=== PATIENT | male | born 2000 | race Caucasian/White ===

== ENCOUNTER 2022-09-08 12:08 | Emergency (ER) | payer OTHER ==
--- NOTE | 2022-09-08 12:29 | ERPHSYRPT ---
- History of Present Illness Time Seen by Provider: 09/08/22 12:29 Source: patient, family Exam Limitations: no limitations Physician History: This is a 21-year-old white male has a history of recurrent strep pharyngitis who yesterday noticed some sore throat and associated fever. Patient's mother is a nurse and the patient received 3 tablets of ibuprofen at approximately 1030 this morning. He has a mild associated cough. 2 [id number] COVID test were performed and they were negative. Patients father has similar symptoms. Timing/Duration: yesterday, worse Cough Quality/Degree: mild Possible Cause: occasional episodes Modifying Factors: Improves With: coughing Associated Symptoms: fever, cough, headache, sore throat (Low-grade) Home Medications: Dextroamphetamine/Amphetamine [Adderall 5 mg Tablet] 20 mg PO BIDWMEALS 09/08/22 [History] Ibuprofen 400 mg PO Q6H PRN PRN 09/08/22 [History] Travel Risk - International Travel Have you traveled outside of the country in past 3 weeks: No - Coronavirus Screening Are you exhibiting any of the following symptoms?: Yes Symptoms: Fever, Cough: New Onset - Review of Systems Constitutional: Fever Eyes: No Symptoms Ears, Nose, & Throat: Throat Pain Respiratory: Cough Cardiac: Other (Tachycardia) Abdominal/Gastrointestinal: No Symptoms Genitourinary Symptoms: No Symptoms Musculoskeletal: No Symptoms Skin: No Symptoms Neurological: No Symptoms Psychological: No Symptoms Endocrine: No Symptoms Hematologic/Lymphatic: No Symptoms Immunological/Allergic: No Symptoms - Past Medical History Pertinent Past Medical History: Yes - Past Surgical History Past Surgical History: Yes - Nursing Vital Signs Nursing Vital Signs: Initial Vital Signs Temperature 99.4 F 09/08/22 12:08 Pulse Rate 130 H 09/08/22 12:08 Respiratory Rate 20 09/08/22 12:08 Blood Pressure 116/65 09/08/22 12:08 O2 Sat by Pulse Oximetry 97 09/08/22 12:08 Pain Scale Pain Intensity 5 - Physical Exam General Appearance: no apparent distress, alert, anxiety Eye Exam: PERRL/EOMI, eyes nml inspection Ears, Nose, Throat Exam: normal ENT inspection, moist mucous membranes, pharyngeal erythema Neck Exam: normal inspection (Mild), non-tender, supple, full range of motion Respiratory Exam: normal breath sounds, lungs clear, airway intact, No chest tenderness, No respiratory distress Cardiovascular Exam: tachycardia Gastrointestinal/Abdomen Exam: soft, normal bowel sounds, No tenderness Rectal Exam: not done Back Exam: normal inspection, normal range of motion, No CVA tenderness, No vertebral tenderness Extremity Exam: normal inspection, normal range of motion, pelvis stable Neurologic Exam: alert, oriented x 3, cooperative, tourist agent II-XII nml as tested, normal mood/affect, nml cerebellar function, nml station & gait, sensation nml Skin Exam: normal color, warm, dry Lymphatic Exam: No adenopathy SpO2 Interpretation: normal O2 Delivery: Room Air - Course Nursing assessment & vital signs reviewed: Yes Ordered Tests: Medication Summary Discontinued Medications Generic Name Dose Route Start Last Admin Trade Name Freq PRN Reason Stop Dose Admin Acetaminophen 650 mg 09/08/22 13:39 09/08/22 13:47 Acetaminophen 325 Mg Tablet PO 09/08/22 13:40 650 mg STAT STA Administration Acetaminophen Confirm 09/08/22 13:46 Acetaminophen 325 Mg Tablet Administered 09/08/22 13:47 Dose 650 mg .ROUTE .STK-MED ONE Oseltamivir Phosphate 75 mg 09/08/22 15:02 09/08/22 15:07 Oseltamivir 75 Mg Cap PO 09/08/22 15:03 75 mg STAT ONE Administration Oseltamivir Phosphate Confirm 09/08/22 15:06 Oseltamivir 75 Mg Cap Administered 09/08/22 15:07 Dose 75 mg PO .STK-MED ONE Lab/Rad Data: Laboratory Results 09/08/22 09/08/22 Range/Units 14:05 14:05 Influenza Type A Ag POSITIVE (NEGATIVE) Influenza Type B Ag NEGATIVE (NEGATIVE) RSV (PCR) NEGATIVE (Negative) SARS-CoV-2 (PCR) NEGATIVE (NEGATIVE) Group A Strep Antibody NOT DETECTED (NEGATIVE) - Progress Progress: improved Air Movement: good Blood Culture(s) Obtained: No Antibiotics given: No Counseled pt/family regarding: lab results, diagnosis, need for follow-up - Departure Departure Disposition: Home Clinical Impression: Influenza A H1N1 infection Condition: Stable Critical Care Time: No Referrals: JASMIN PRICE [Primary Care Provider] - Follow up/PCP as directed Additional Instructions: Drink plenty of fluids. Take Tylenol and ibuprofen for fever control. Take your medications as prescribed Prescriptions: Oseltamivir 75 mg [Tamiflu 75MG Capsule] 75 mg PO BID #10 cap
[2022-09-08] MEDS ORDERED: TYLENOL 325 MG PO STA (13:39)
[2022-09-08] MEDS ORDERED: TYLENOL 325 MG ONE (13:46)
[2022-09-08 14:56] LABS: INFLUENZA B NEGATIVE (NEGATIVE); RESPIRATORY SYNCTIAL VIRUS NEGATIVE (Negative); SARS-CoV-2 Xpert Express NEGATIVE (NEGATIVE)
[2022-09-08 14:59] LABS: INFLUENZA A POSITIVE (NEGATIVE)
[2022-09-08] MEDS ORDERED: Tamiflu 75MG Capsule PO ONE ×2 (15:02→15:06)
[2022-09-08 15:13] VITALS: BP 131/74; PULSE 100; O2SAT 95
== END 2022-09-08 15:20 | disposition home or self-care (01) ==
LOC: ED 12:08
DX: J10.1 Influenza due to other identified influenza virus with other respiratory manifestations (principal); R50.9 Fever, unspecified; R05.1 Acute cough; Z79.899 Other long term (current) drug therapy
CPT/HCPCS: 0241U; 87651; 99283; A9270-GY